=== PATIENT | female | born 1995 | race Caucasian/White ===

== ENCOUNTER 2019-03-21 01:45 | Day surgery (SDC) | payer BC, SELFPAY ==
[2019-03-17 09:36] VITALS: BMI 24.1
[2019-03-21] VITALS (10 sets, daily range): BP systolic 103–122; BP diastolic 45–79; PULSE 74–101; RESP 12–20; TEMP 36.2–36.4; O2SAT 100; BMI 23.5
[2019-03-21] MEDS: LACTATED RINGERS 1,000 ML 30 ML IV CONT ×2 (08:30→13:10)
--- NOTE | 2019-03-21 09:01 | PM.HPGS ---
History of Present Illness History of Present Illness Consent: Risks, benefits, and alternatives have been discussed and questions answered. Patient agrees to proceed with procedure. Chief complaint: Left Large Ovarian Cyst Narrative: Laura Yen is a 23 year old female presented for well exam and noted abdominal masss. Ultrasound showed a large 7.8 cm. Patient has a prior history of cyst with torsion 13 years ago. PMFSH Past Medical History Medical History (Updated 03/21/19 @ 09:09 by Darryl Schultz MD) Hx of migraines Ovarian cyst Surgical History Surgical History (Updated 03/21/19 @ 09:05 by Darryl Schultz MD) H/O laparoscopy Meds Home Medications and Allergies Home Medications Medication Instructions Recorded Confirmed Type cyanocobalamin (vitamin B-12) 500 mcg PO DAILY 03/17/19 03/17/19 History [Vitamin B-12] multivitamin 1 tablet PO DAILY 03/17/19 03/17/19 History Allergies Allergy/AdvReac Type Severity Reaction Status Date / Time CHLORA-PREP Allergy SKIN RASH Uncoded 03/18/19 09:10 Vital Signs Vital Signs - 24 hr 03/21/19 08:00 Temperature 36.2 C L Pulse Rate 79 Respiratory Rate 18 Blood Pressure 103/59 L Pulse Oximetry 100 Exam Const: General: no acute distress Resp: Auscultation: clear to auscultation bilaterally Cardio: Rate: regular rate Rhythm: regular rhythm GI: GI Palp: Yes Soft to palpation : External Female Exam: normal external appearance Other: Palpable adnexal mass Results Results US - pelvic: report reviewed (7.8 cm left ovarian cyst) Assessment and Plan Assessment and plan (1) Ovarian cyst: Qualifiers: Laterality: left Qualified Code(s): N83.202 - Unspecified ovarian cyst, left side Code(s): N83.209 - Unspecified ovarian cyst, unspecified side Status: Acute Assessment and Plan: large left ovarian cyst . schedule for a laparoscopy with ovarian cystectomy.
--- NOTE | 2019-03-21 09:04 | P.PNAN_ITS ---
Anes - Initial Pre Proc Eval Procedure: Operation Date: 03/21/19 10:00 Proposed Procedures p Diagnostic Laparoscopy, Left Ovarian Cystectomy - Darryl Schultz MD Date/Time: 03/21/19 09:04 Surgeon: Darryl Schultz MD Pre Op Diagnosis: Left Large Ovarian Cyst Patient Data Age: 23 Gender: F Height: 5 ft 5 in Weight: 64.1 kg Last Vital Signs Temp 36.2 C L 03/21/19 08:00 Pulse 79 03/21/19 08:00 Resp 18 03/21/19 08:00 BP 103/59 L 03/21/19 08:00 Pulse Ox 100 03/21/19 08:00 Allergies Allergy/AdvReac Type Severity Reaction Status Date / Time CHLORA-PREP Allergy SKIN RASH Uncoded 03/18/19 09:10 Home Medications Medication Instructions Recorded Confirmed Type cyanocobalamin (vitamin B-12) 500 mcg PO DAILY 03/17/19 03/17/19 History [Vitamin B-12] multivitamin 1 tablet PO DAILY 03/17/19 03/17/19 History Patient hx anesthesia problems: none Family hx anesthesia problems: none [facility] Past Medical History Medical History (Updated 03/21/19 @ 09:05 by Darryl Schultz MD) Hx of migraines Anes - Eval Final PreProcedure Day of Procedure 03/21/19 09:04 Patient weight: normal Heart: regular rate and rhythm Lungs: clear to auscultation Airway: Mallampati scale class II Neurological: alert and oriented Last oral intake: >/= 8 hours ASA classification: II Emergent: no Anesthetic plan: proceed Anesthesia type and monitoring: general ETT and standard monitoring Informed Consent: The patient's anesthetic plan and its attendant risks and benefits were discussed with the patient/family/POA. Questions were solicited and answers provided to the satisfaction of the patient/family/POA.
[2019-03-21] MEDS: KETOROLAC 30 MG/ML VIAL (*BKC) IV PUSH (12:35)
--- NOTE | 2019-03-22 16:08 | OP_ITS ---
DATE OF PROCEDURE: 03/21/2019 PREOPERATIVE DIAGNOSIS: Left ovarian cyst. POSTOPERATIVE DIAGNOSES: Abdominal and adnexal adhesions, bilateral ovarian cysts, and bilateral teratomas. PROCEDURE PERFORMED: Laparoscopy with left salpingo-oophorectomy and right cystectomy and extensive lysis of adhesions. ANESTHESIA: General. COMPLICATIONS: None. ESTIMATED BLOOD LOSS: 50 cc. PATHOLOGY: Left ovarian tube and ovary adhesions and right cyst. FINDINGS: Demonstrated a 9 cm right ovarian cyst and a 9 cm left ovarian cyst with excessive or extensive abdominal adhesions to the bowel, posterior cul-de-sac, and uterus. DESCRIPTION OF PROCEDURE: The patient was taken to the operating room with IV running. She was prepared and draped in a normal sterile fashion and placed in a dorsal lithotomy position. A bivalve speculum was placed into the vagina. Anterior lip of the cervix was grasped with a single-tooth tenaculum and a uterus was sounded and the [place] manipulator was used for uterine elevation. The speculum was removed. Attention was then turned to the abdomen where a 1 cm infraumbilical incision was made in the infraumbilical fold. The Veress needle was then placed into the abdomen while the abdomen is being tented up with, and the CO2 was then turned on and excellent pressures noted. The Veress needle was removed. The trocar was then advanced under direct visualization. Laparoscopic findings were as noted. Two incisions were made in the right and left lower quadrants under direct visualization. A 5 mm port was placed on the left and a 10 mm port was placed on the right side. Attention was then turned to the excision of adhesions targeting the left ovary first until able to free the left ovary from the posterior wall of the uterus and cul-de-sac. This was done with sharp and blunt dissection. At this time, the left ovary was then transected with Harmonic Scalpel, placed in the endobag, and removed through the 10 mm port. The port was then replaced and adhesiolysis was performed on the right ovary. This ovarian tube had good flow and was able to remove the right ovarian cyst. This was removed with the Endobag. The abdomen was irrigated copiously. Hemostasis noted. Hemostats were placed over the raw edges of the posterior cul-de-sac and a layer of Interceed was placed over the right ovary and tube. The ports were removed from the abdomen, the 10 mm trocar site. The fascia was closed with 0 Vicryl in a [id number] stitch and the ports were closed with 4-0 Vicryl in the subcutaneous layer. Instruments were removed from the vagina. Sponge, lap, and needle counts were correct x2. The patient tolerated the procedure well. D I MT: Brent
== END 2019-03-21 15:30 | disposition home or self-care (01) ==
PROVIDERS: Visit Provider Obstetrics & Gynecology
PROC: (CPT 49320; principal; 2019-03-21 10:00)
DX: D27.1 Benign neoplasm of left ovary (principal); D27.0 Benign neoplasm of right ovary; N73.6 Female pelvic peritoneal adhesions (postinfective)
CPT/HCPCS: 58661; 58662; 88304; 88305; 88307; 88311; A9270; J0131; J0330; J1100; J1885; J2250; J2405; J2704; J3010; J7030; J7120; Q9968